=== PATIENT | female | born 1995 | race African-American/Black ===

== ENCOUNTER 2016-10-25 06:36 | Inpatient (IN) ==
[2016-10-25 07:14] LABS: URINE SOURCE VOIDED
[2016-10-25] MEDS ORDERED: PEPCID IV PRN (07:34)
[2016-10-25] MEDS ORDERED: ZOFRAN IV PRN (07:34)
[2016-10-25] MEDS ORDERED: KEFZOL 1 GM/D5W 1 GM/50 ML IVPB IV PRN (07:34)
[2016-10-25] MEDS ORDERED: PITOCIN 30 UNITS/LR 30 UNITS/500 ML IV.SOLN IV SCH (07:34)
[2016-10-25] MEDS ORDERED: REGLAN PO ONE (07:34)
[2016-10-25] MEDS ORDERED: TYLENOL PO PRN (07:34)
[2016-10-25] MEDS ORDERED: AMPICILLIN 2 GM/NS 2 GM/100 ML IVPB IV ONE (07:34)
[2016-10-25] MEDS ORDERED: STADOL IV PRN (07:34)
[2016-10-25] MEDS ORDERED: PEPCID PO ONE (07:34)
[2016-10-25] MEDS ORDERED: PEPCID PO PRN (07:34)
[2016-10-25 07:42] LABS: BILIRUBIN URINE NEGATIVE (NEGATIVE); BLOOD URINE TRACE (NEGATIVE); CLARITY CLEAR (CLEAR); COLOR YELLOW; GLUCOSE URINE NEGATIVE (NEGATIVE); LEUKOCYTES URINE TRACE (NEGATIVE); NITRITE URINE NEGATIVE (NEGATIVE); PROTEIN URINE TRACE mg/dL (NEGATIVE); SP GRAVITY URINE 1.005; UROBILINOGEN URINE NORMAL
[2016-10-25] MEDS ORDERED: SODIUM CHLORIDE 0.9% INJ SCH (07:45)
[2016-10-25] MEDS: LR 1,000 ML IV SCH ×2 (08:01→12:12)
[2016-10-25 08:18] LABS: MANUAL DIFF NEEDED? NO
[2016-10-25 08:19] LABS: BASO% 0.2 % (0.0-0.8); EOS# 0.03 X1000 (0.0-0.7); EOS% 0.6 % (0.0-10.0); HEMATOCRIT 38.6 % (37.0-47.0); HEMOGLOBIN 12.9 g/dL (12.0-16.0); IMM GRAN# 0.01 X1000 (0.0-0.04); IMM GRAN% 0.2 % (0.0-0.5); LYMPH# 1.63 X1000 (1.2-3.4); MCHC 33.4 g/dL (33-37); MCV 77.7 FL (81-99); MONO# 0.56 X1000 (0.11-0.59); MONO% 10.6 % (1.7-9.3); MPV 10.6 FL (7.4-10.4); NEUT% 57.4 % (42.2-75.2); PLT 187 X1000 (130-400); RBC 4.97 XMIL (4.2-5.4)
[2016-10-25] MEDS ORDERED: FENTANYL-BUPIV-NS 2 MCG-0.1% 200 ML EPIDURAL PRN (08:56)
[2016-10-25] MEDS ORDERED: AMPICILLIN 1 GM/NS 1 GM/50 ML IVPB IV SCH (11:35)
[2016-10-25] MEDS ORDERED: MINERAL OIL TOP ONE (11:39)
[2016-10-25] MEDS ORDERED: XYLOCAINE-MPF 1% INJ ONE (11:40)
[2016-10-25] MEDS ORDERED: PITOCIN IM PRN (16:42)
[2016-10-25] MEDS ORDERED: XYLOCAINE-MPF 1% INJ PRN (16:42)
[2016-10-25] MEDS ORDERED: M-M-R II VACCINE SUBQ ONE (16:42)
[2016-10-25] MEDS ORDERED: PITOCIN 20 UNITS/LR 20 UNITS/1,000 ML IV.SOLN IV SCH (16:42)
[2016-10-25] MEDS ORDERED: AMBIEN PO PRN (16:42)
[2016-10-25] MEDS ORDERED: NORCO-5 PO PRN (16:42)
[2016-10-25] MEDS ORDERED: BOOSTRIX VACCINE IM ONE (16:42)
[2016-10-25] MEDS ORDERED: BENADRYL PO PRN (16:42)
[2016-10-25] MEDS ORDERED: BENADRYL IV PRN (16:42)
[2016-10-25] MEDS ORDERED: PITOCIN 30 UNITS/LR 30 UNITS/500 ML IV.SOLN IV ONE (16:42)
[2016-10-25] MEDS ORDERED: HYDROXYZINE PO PRN (16:42)
[2016-10-25] MEDS ORDERED: MINERAL OIL PO PRN (16:42)
[2016-10-25] MEDS ORDERED: HYDROXYZINE IM PRN (16:42)
[2016-10-25] MEDS ORDERED: CYTOTEC PO PRN (16:42)
[2016-10-25] MEDS: NORCO-10 PO PRN (17:08)
[2016-10-25] MEDS: MOTRIN PO PRN (17:09)
[2016-10-25] MEDS: PERI MEDS (DERMOPLAST/NUPERCAINAL/TUCKS) MISC PRN (17:09)
[2016-10-25] MEDS: PERICOLACE PO SCH (21:06)
[2016-10-26 07:20] LABS: HEMATOCRIT 31.7 % (37.0-47.0); HEMOGLOBIN 10.2 g/dL (12.0-16.0); MCH 25.6 PG (27-31); MCHC 32.2 g/dL (33-37); MCV 79.4 FL (81-99); MPV 10.6 FL (7.4-10.4); RBC 3.99 XMIL (4.2-5.4)
[2016-10-26] MEDS: MOTRIN PO PRN ×2 (09:20→20:33)
[2016-10-26] MEDS: NORCO-10 PO PRN ×2 (09:21→20:33)
[2016-10-26] MEDS: PERICOLACE PO SCH (20:33)
[2016-10-27] MEDS: PERI MEDS (DERMOPLAST/NUPERCAINAL/TUCKS) MISC PRN ×2 (01:35→06:38)
[2016-10-27] MEDS: NORCO-10 PO PRN (08:05)
[2016-10-27] MEDS: MOTRIN PO PRN (08:06)
[2016-10-27 08:43] VITALS: BP 127/77
== END 2016-10-27 13:20 | disposition home or self-care (01) ==
LOC: P.OPLD 06:36 → P.LD 06:37
PROVIDERS: ADMIT Obstetrics & Gynecology; ATTEND Obstetrics & Gynecology